=== PATIENT | female | born 1975 | race Caucasian/White ===

== ENCOUNTER 2021-03-15 01:40 | Emergency (ER) | payer MEDICARE ==
[~2021-03-15] VITALS: Ht 167.6 cm; Wt 71.0 kg
[2021-03-15 06:47] VITALS: BP 109/64
== END 2021-03-15 07:20 | disposition home or self-care (01) ==
LOC: ER 01:40
DX: U07.1 COVID-19 (principal); Z88.0 Allergy status to penicillin; Z88.2 Allergy status to sulfonamides; Z86.39 Personal history of other endocrine, nutritional and metabolic disease
CPT/HCPCS: 71045; 87426; 93005; 99285